=== PATIENT | female | born 1995 | race African-American/Black ===

== ENCOUNTER 2021-08-24 13:59 | Emergency (ER) | payer SELFPAY ==
[2021-08-24] MEDS ORDERED: Azithromycin 250 MG Tab PO STA (15:10)
[2021-08-24] MEDS ORDERED: cefTRIAXone 500 MG in Lidocaine 1% 1 ML IM ONE (15:10)
[2021-08-24] MEDS ORDERED: Ondansetron 4 MG Tab.DIS PO ONE (15:10)
[2021-08-24 17:25] LABS: C. TRACHOMATIS BY PCR NOT DETECTED; N. GONORRHOEAE BY PCR NOT DETECTED
== END 2021-08-24 17:01 | disposition home or self-care (01) ==
LOC: MW.ED 13:59
DX: N76.0 Acute vaginitis (principal); B96.89 Other specified bacterial agents as the cause of diseases classified elsewhere; B37.3 Candidiasis of vulva and vagina; Z79.899 Other long term (current) drug therapy
CPT/HCPCS: 81001; 81025; 87480; 87491; 87510; 87591; 87660; 96372; 99284; A9270; J0696; 99283